=== PATIENT | female | born 1935 | race Caucasian/White ===

== ENCOUNTER 2016-04-19 09:14 | Inpatient (IN) | payer MEDICARE, MEDICAID ==
[2016-04-19] MEDS ORDERED: diphenhydrAMINE 50 MG/ML SDV IM ONE (10:07)
[2016-04-19] MEDS ORDERED: LORazepam 2 MG/ML MDV IM PRN (10:07)
[2016-04-19] MEDS ORDERED: Haloperidol Lactate 5 MG/ML SDV IM ONE (10:08)
[2016-04-19] MEDS ORDERED: diphenhydrAMINE 50 MG/ML SDV IM PRN (10:15)
[2016-04-19] MEDS ORDERED: diphenhydrAMINE 50 MG/ML SDV IM SCH (10:15)
[2016-04-19] MEDS ORDERED: Haloperidol Lactate 5 MG/ML SDV IM PRN (10:15)
[2016-04-19] MEDS ORDERED: Haloperidol Lactate 5 MG/ML SDV ONE (11:40)
[2016-04-19] MEDS ORDERED: LORazepam 2 MG/ML MDV ONE (11:40)
[2016-04-19] MEDS ORDERED: diphenhydrAMINE 50 MG/ML SDV ONE (11:40)
[2016-04-19] MEDS ORDERED: Sodium Chloride 0.9% 10 ML Syringe FLUSH PRN (12:25)
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
[2016-04-19] MEDS: Sodium Chloride 0.9% 1,000 ML IV SCH (13:35)
[2016-04-19] MEDS: Ciprofloxacin in D5W 200 ML ONE ×3 (14:25→14:34)
[2016-04-19] MEDS: Ciprofloxacin in D5W 400 MG in Premix Bag 1 BAG IV SCH ×4 (14:33→20:50)
[2016-04-19] MEDS ORDERED: diphenhydrAMINE 50 MG/ML SDV IVPUSH ONE (17:01)
[2016-04-19] MEDS ORDERED: LORazepam 2 MG/ML MDV IVPUSH ONE (17:02)
[2016-04-19] MEDS ORDERED: Haloperidol Lactate 5 MG/ML SDV IVPUSH ONE (17:05)
[2016-04-20] MEDS: LORazepam 2 MG/ML MDV IVPUSH PRN ×3 (06:37→19:57)
[2016-04-20] MEDS ORDERED: Haloperidol Lactate 5 MG/ML SDV IVPUSH ONE (07:25)
[2016-04-20] MEDS ORDERED: diphenhydrAMINE 50 MG/ML SDV IVPUSH ONE (07:25)
--- NOTE | 2016-04-20 08:35 | PCM.PN ---
- General Info Date of Service: 04/20/16 Admission Dx/Problem (Free Text): Dementia UTI Subjective Update: Stable evening. Only 2 mg of Ativan for agitation. Did pull her IV out X2. This morning, she had 5 bites of oatmeal and some juice. She is incoherent. therapeutic activities services worker is working on finding placement. She is being treated for a UTI with Cipro. Unable to do ROS due to the fact she is incoherent. Functional Status: Reports: tolerating diet - Review of Systems Psychiatric: Reports: confusion, agitation - Patient Data Vitals - most recent: Last Vital Signs Temp 97.2 F 04/19/16 20:00 Pulse 68 04/19/16 20:00 Resp 18 04/19/16 20:00 BP 131/67 04/19/16 20:00 Pulse Ox 99 04/19/16 20:00 Lab Results last 24 hrs: CBC, CMP, TSH, UDS are wnl UA shows +nitrites and leuks, tx for UTI Med Orders - Current: Current Medications Sodium Chloride (Normal Saline) 1,000 mls @ 75 mls/hr IV ASDIRECTED ANDREW Last Infusion: 04/20/16 05:18 Dose: Infused Ciprofloxacin/Dextrose 400 mg/ (Premix) 200 mls @ 200 mls/hr IV Q12HR ANDREW Last Admin: 04/19/16 20:50 Dose: 200 mls/hr Lorazepam (Ativan) 1 mg IVPUSH Q4H PRN PRN Reason: Agitation Last Admin: 04/20/16 06:37 Dose: 1 mg Sodium Chloride (Saline Flush) 10 ml FLUSH ASDIRECTED PRN PRN Reason: Keep Vein Open Last Admin: 04/19/16 13:30 Dose: 10 ml Discontinued Medications Diphenhydramine HCl (Benadryl) 50 mg IM ONETIME ONE Stop: 04/19/16 10:08 Diphenhydramine HCl (Benadryl) 50 mg IM ASDIRECTED ANDREW Stop: 04/19/16 14:00 Diphenhydramine HCl (Benadryl) 50 mg IM ASDIRECTED PRN PRN Reason: AGITATION Stop: 04/19/16 14:00 Diphenhydramine HCl (Benadryl) 50 mg IVPUSH ONETIME ONE Stop: 04/19/16 17:02 Last Admin: 04/19/16 17:00 Dose: 50 mg Diphenhydramine HCl (Benadryl) 25 mg IVPUSH ONETIME ONE Stop: 04/20/16 07:26 Haloperidol Lactate (Haldol) 2.5 mg IM ONETIME ONE Stop: 04/19/16 10:09 Haloperidol Lactate (Haldol) 2.5 mg IM ASDIRECTED PRN PRN Reason: AGITATION Stop: 04/19/16 14:00 Haloperidol Lactate (Haldol) 2.5 mg IVPUSH ONETIME ONE Stop: 04/19/16 17:06 Last Admin: 04/19/16 17:00 Dose: 2.5 mg Haloperidol Lactate (Haldol) 2.5 mg IVPUSH ONETIME ONE Stop: 04/20/16 07:26 Ciprofloxacin/Dextrose (Cipro In D5w 400 Mg/200 Ml) Confirm Administered Dose 200 mls @ as directed .ROUTE .STK-MED ONE Stop: 04/19/16 14:22 Last Admin: 04/19/16 14:34 Dose: Not Given Lorazepam (Ativan) 2 mg IM ONETIME PRN PRN Reason: Anxiety Lorazepam (Ativan) 1 mg IVPUSH ONETIME ONE Stop: 04/19/16 17:03 Last Admin: 04/19/16 17:00 Dose: 1 mg - Exam General: alert, other (incoherent) HEENT: Pupils equal, Pupils reactive, EOMI, Mucous membr. moist/pink Neck: supple Lungs: Clear to auscultation, Normal respiratory effort Cardiovascular: regular rate, regular rhythm Abdomen: bowel sounds present, soft, no tenderness, no distension Back Exam: normal inspection Extremities: no edema Skin: warm, dry (toenails are thick, long.) Neurological: other (inaudible). No: cranial nerves intact Psy/Mental Status: alert, agitated - Problem List & Annotations (1) Dementia SNOMED Code(s): 84697188 Code(s): F03.90 - UNSPECIFIED DEMENTIA WITHOUT BEHAVIORAL DISTURBANCE Status: Acute Priority: High Current Visit: Yes Qualifiers: Alzheimer's disease onset: unspecified onset Dementia behavioral disturbance: with behavioral disturbance (2) Violent behavior SNOMED Code(s): 518378643 Code(s): R45.6 - VIOLENT BEHAVIOR Status: Acute Priority: High Current Visit: Yes - Problem List Review Problem List Initiated/Reviewed/Updated: Yes - My Orders Last 24 Hours: My Active Orders 04/19/16 17:43 LORazepam [Ativan] 1 mg IVPUSH Q4H PRN 04/19/16 20:00 Ciprofloxacin in D5W [Cipro in D5W 400 MG/200 ML] 400 mg Premix Bag 1 bag IV Q12HR - Plan Plan:: Placement to a senior behavioral unit is in the works with social work.
--- NOTE | 2016-04-20 08:42 | CT ---
DATE OF SERVICE: 04/19/16 CLINICAL DATA: falls UNENHANCED BRAIN CT: Multislice acquisition through the brain without IV contrast was performed. No priors. There is diffuse cerebral atrophy. There are periventricular lucencies bilaterally consistent with small vessel ischemic change. No masses or mass effect. No intracranial hemorrhage. No evidence of acute or subacute infarct. There is minimal mucosal thickening in the ethmoid sinuses consistent with chronic sinusitis. No osseous abnormalities. IMPRESSION: No acute intracranial abnormalities. [id number] [facility]
--- NOTE | 2016-04-20 08:45 | CR ---
DATE OF SERVICE: 04/19/16 CLINICAL DATA: CAD PORTABLE AP CHEST: No priors. The patient is status post median sternotomy. The heart is enlarged. The aorta is calcified and ectatic. There are mild interstitial changes in both lower lungs. The lungs are otherwise clear. No pneumothorax. No pleural effusions. No areas of consolidation. [id number] [facility]
[2016-04-20] MEDS: Ciprofloxacin in D5W 400 MG in Premix Bag 1 BAG IV SCH ×4 (10:33→21:01)
[2016-04-20] MEDS ORDERED: Haloperidol Lactate 5 MG/ML SDV IVPUSH PRN (21:00)
[2016-04-20] MEDS: Sodium Chloride 0.9% 1,000 ML IV SCH (22:20)
[2016-04-21] MEDS: LORazepam 2 MG/ML MDV IVPUSH PRN ×5 (03:10→21:37)
[2016-04-21] MEDS ORDERED: Ciprofloxacin in D5W 200 ML ONE (07:37)
[2016-04-21] MEDS: Ciprofloxacin in D5W 400 MG in Premix Bag 1 BAG IV SCH ×4 (07:51→20:48)
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
[2016-04-21] MEDS: Sodium Chloride 0.9% 1,000 ML IV SCH (13:19)
[2016-04-21] MEDS ORDERED: Albuterol/Ipratropium 3.0-0.5 MG/3 ML Neb Soln NEB PRN (17:05)
[2016-04-21] MEDS ORDERED: Bisacodyl 10 MG Supp ONE (17:25)
[2016-04-21] MEDS ORDERED: Haloperidol Lactate 5 MG/ML SDV IVPUSH PRN (19:32)
[2016-04-22] MEDS: LORazepam 2 MG/ML MDV IVPUSH PRN ×3 (01:25→21:48)
[2016-04-22] MEDS: Sodium Chloride 0.9% 1,000 ML IV SCH ×2 (02:30→20:37)
[2016-04-22] MEDS ORDERED: Ciprofloxacin in D5W 200 ML ONE (07:21)
[2016-04-22] MEDS: Ciprofloxacin in D5W 400 MG in Premix Bag 1 BAG IV SCH ×4 (07:36→20:30)
[2016-04-22] MEDS ORDERED: Enalaprilat 1.25 MG/ML SDV IVPUSH PRN (09:10)
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
[2016-04-22] MEDS: Enalaprilat 1.25 MG/ML SDV IVPUSH SCH ×2 (09:39→18:00)
[2016-04-22] MEDS ORDERED: diphenhydrAMINE 50 MG/ML SDV IVPUSH ONE (23:59)
[2016-04-22] MEDS ORDERED: LORazepam 2 MG/ML MDV IVPUSH ONE (23:59)
[2016-04-23] MEDS ORDERED: Haloperidol Lactate 5 MG/ML SDV IVPUSH ONE
[2016-04-23] MEDS ORDERED: Haloperidol Lactate 5 MG/ML SDV IM ONE (04:34)
[2016-04-23] MEDS: LORazepam 2 MG/ML MDV IVPUSH PRN ×4 (07:27→23:21)
[2016-04-23] MEDS: Ciprofloxacin in D5W 400 MG in Premix Bag 1 BAG IV SCH ×2 (07:39)
[2016-04-23] MEDS ORDERED: Enalaprilat 1.25 MG/ML SDV IVPUSH SCH ×2 (09:00)
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
[2016-04-23] MEDS ORDERED: Haloperidol Lactate 5 MG/ML SDV IM PRN (16:19)
[2016-04-23] MEDS ORDERED: diphenhydrAMINE 50 MG/ML SDV ONE (20:00)
[2016-04-23] MEDS ORDERED: diphenhydrAMINE 50 MG/ML SDV IM PRN (21:35)
[2016-04-24] MEDS: LORazepam 2 MG/ML MDV IVPUSH PRN (03:14)
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
--- NOTE | 2016-04-24 09:53 | PCM.PN ---
- General Info Date of Service: 04/24/16 Subjective Update: Patient is sleeping but arousable and denies any concerns. She has been fluctuating in behaviors the past few days. Discussion with nursing have noted that the patient will appear to have improved and once we try to remove restraints her aggressive behaviors will return abruptly which includes hitting , pinching, scratching staff. This morning she was looking for a knife which is alarming as we cannot be certain if she has plans to harm herself or others. There is a current plan for placement but all centers have either been full or have unable to accept any transfers. Patient did have one-on-one nursing staff and at bedside at all times. She has been adjusted so she is visible to the nursing desk area at all times. - Review of Systems Systems Review Comment:: Uncooperative but denies any chest pain, no sob, no pain. - Patient Data Vitals - most recent: Last Vital Signs Temp 36.1 C 04/23/16 12:00 Pulse 86 04/24/16 04:00 Resp 20 04/24/16 04:00 BP 144/85 H 04/23/16 12:00 Pulse Ox 97 04/24/16 04:00 I&O - last 24 hours: Intake & Output 04/23/16 04/24/16 04/24/16 22:59 06:59 14:59 Intake Total 1440 350 Output Total 1600 600 Balance -160 -250 Med Orders - Current: Current Medications Albuterol/Ipratropium (Duoneb 3.0-0.5 Mg/3 Ml) 3 ml NEB Q4H PRN PRN Reason: Shortness of Breath Last Admin: 04/21/16 17:10 Dose: 3 ml Diphenhydramine HCl (Benadryl) 50 mg IM Q4H PRN PRN Reason: Hallucinations Last Admin: 04/23/16 21:50 Dose: 50 mg Enalaprilat (Vasotec Iv) 0.625 mg IVPUSH ONETIME ANDREW Haloperidol Lactate (Haldol) 2.5 mg IM Q8H PRN PRN Reason: Agitation Last Admin: 04/23/16 21:39 Dose: 2.5 mg Sodium Chloride (Normal Saline) 1,000 mls @ 75 mls/hr IV ASDIRECTED ANDREW Last Admin: 04/22/16 20:37 Dose: 75 mls/hr Lorazepam (Ativan) 1 mg IVPUSH Q4H PRN PRN Reason: Agitation Last Admin: 04/24/16 03:14 Dose: 1 mg Sodium Chloride (Saline Flush) 10 ml FLUSH ASDIRECTED PRN PRN Reason: Keep Vein Open Last Admin: 04/19/16 13:30 Dose: 10 ml Discontinued Medications Bisacodyl (Dulcolax) Confirm Administered Dose 10 mg .ROUTE .STK-MED ONE Stop: 04/21/16 17:26 Last Admin: 04/21/16 17:30 Dose: 10 mg Diphenhydramine HCl (Benadryl) 50 mg IM ONETIME ONE Stop: 04/19/16 10:08 Diphenhydramine HCl (Benadryl) 50 mg IM ASDIRECTED ANDREW Stop: 04/19/16 14:00 Diphenhydramine HCl (Benadryl) 50 mg IM ASDIRECTED PRN PRN Reason: AGITATION Stop: 04/19/16 14:00 Diphenhydramine HCl (Benadryl) 50 mg IVPUSH ONETIME ONE Stop: 04/19/16 17:02 Last Admin: 04/19/16 17:00 Dose: 50 mg Diphenhydramine HCl (Benadryl) 25 mg IVPUSH ONETIME ONE Stop: 04/20/16 07:26 Diphenhydramine HCl (Benadryl) 50 mg .ROUTE .STK-MED ONE Stop: 04/19/16 11:41 Diphenhydramine HCl (Benadryl) 50 mg IVPUSH ONETIME ONE Stop: 04/23/16 00:00 Last Admin: 04/23/16 21:41 Dose: Not Given Diphenhydramine HCl (Benadryl) Confirm Administered Dose 50 mg .ROUTE .STK-MED ONE Stop: 04/23/16 20:01 Last Admin: 04/23/16 21:40 Dose: Not Given Enalaprilat (Vasotec Iv) 0.625 mg IVPUSH Q6H PRN PRN Reason: Hypertension Enalaprilat (Vasotec Iv) 0.625 mg IVPUSH Q6H ANDREW Last Admin: 04/22/16 18:00 Dose: 0.625 mg Enalaprilat (Vasotec Iv) 0.625 mg IVPUSH Q6HR ANDREW Haloperidol Lactate (Haldol) 2.5 mg IM ONETIME ONE Stop: 04/19/16 10:09 Haloperidol Lactate (Haldol) 2.5 mg IM ASDIRECTED PRN PRN Reason: AGITATION Stop: 04/19/16 14:00 Haloperidol Lactate (Haldol) 2.5 mg IVPUSH ONETIME ONE Stop: 04/19/16 17:06 Last Admin: 04/19/16 17:00 Dose: 2.5 mg Haloperidol Lactate (Haldol) 2.5 mg IVPUSH ONETIME ONE Stop: 04/20/16 07:26 Haloperidol Lactate (Haldol) 5 mg .ROUTE .STK-MED ONE Stop: 04/19/16 11:41 Haloperidol Lactate (Haldol) 2.5 mg IVPUSH Q8H PRN PRN Reason: Agitation Last Admin: 04/21/16 10:23 Dose: 2.5 mg Haloperidol Lactate (Haldol) 2.5 mg IVPUSH ONETIME PRN PRN Reason: Agitation Haloperidol Lactate (Haldol) 2.5 mg IVPUSH ONETIME ONE Stop: 04/23/16 00:01 Last Admin: 04/23/16 21:50 Dose: Not Given Haloperidol Lactate (Haldol) 2.5 mg IM ONETIME ONE Stop: 04/23/16 04:35 Last Admin: 04/23/16 21:51 Dose: Not Given Ciprofloxacin/Dextrose 400 mg/ (Premix) 200 mls @ 200 mls/hr IV Q12HR [facility] Last Admin: 04/23/16 07:39 Dose: 200 mls/hr Ciprofloxacin/Dextrose (Cipro In D5w 400 Mg/200 Ml) Confirm Administered Dose 200 mls @ as directed .ROUTE .STK-MED ONE Stop: 04/19/16 14:22 Last Admin: 04/19/16 14:34 Dose: Not Given Ciprofloxacin/Dextrose (Cipro In D5w 400 Mg/200 Ml) Confirm Administered Dose 200 mls @ as directed .ROUTE .STK-MED ONE Stop: 04/21/16 07:38 Last Admin: 04/21/16 09:33 Dose: Not Given Ciprofloxacin/Dextrose (Cipro In D5w 400 Mg/200 Ml) Confirm Administered Dose 200 mls @ as directed .ROUTE .STK-MED ONE Stop: 04/22/16 07:22 Last Admin: 04/22/16 07:31 Dose: Not Given Lorazepam (Ativan) 2 mg IM ONETIME PRN PRN Reason: Anxiety Lorazepam (Ativan) 1 mg IVPUSH ONETIME ONE Stop: 04/19/16 17:03 Last Admin: 04/19/16 17:00 Dose: 1 mg Lorazepam (Ativan) 2 mg .ROUTE .STK-MED ONE Stop: 04/19/16 11:41 Lorazepam (Ativan) 1 mg IVPUSH ONETIME ONE Stop: 04/23/16 00:00 Last Admin: 04/23/16 01:45 Dose: 1 mg - Exam General: alert, cooperative (for certain questions and exams. ). No: oriented HEENT: Pupils equal, Pupils reactive, EOMI Lungs: Clear to auscultation, Normal respiratory effort Cardiovascular: regular rate, regular rhythm Abdomen: bowel sounds present, soft, no tenderness Extremities: no edema Skin: warm, dry, intact Neurological: no new focal deficit Psy/Mental Status: labile mood, other (psychosis) - Problem List Review Problem List Initiated/Reviewed/Updated: Yes - My Orders Last 24 Hours: My Active Orders 04/23/16 21:35 diphenhydrAMINE [Benadryl] 50 mg IM Q4H PRN - Plan Plan:: Placement to a senior behavioral unit is in the works with social work. Having difficulty finding placement for her. She will remain on her 72 hours hold, which expires tomorrow. (04/19/2025) Continues to have aggressive behavior. Does hit and kick at caretakers. Will continue to use ativan prn for this; Haldol will need specific order. Restraints off q 2 hours and re evaluate; she needs to be one on one if no one is in the room with her for her safety. She is not oriented to person, place or time. She is not able to feed herself. (04/20/2015) Delirium Dx Will have her evaluated by Dr. Jiménez, clinical psychologist. (04/21/2015) Will start vasotec for blood pressure. Continue to wait for placement. Guardianship was granted yesterday (Sunday). 04/22/2015 04/23/2016 Continue to wait for placement in [facility] for evaluation/diagnosis and med treatment. Guardianship has been obtained. She seems to do worse at night. More aggressive, per nurse, spits and is vulgar as well. Care will be turned over to Dr. Robertson at 1800 this evening. 04/24/2016 Pending placement. Patient has been having episodes of increased behavior late at night with aggression both verbally and physically. We will try adjustments of medication to help reduce the violent episodes and continue all supportive and care activities to redirect patient.
[2016-04-24] MEDS ORDERED: LORazepam 2 MG/ML MDV IM PRN (19:30)
--- NOTE | 2016-04-24 19:49 | PCM.SN ---
- Free Text/Narrative Note: Patient was talking with nurse and began to get combative again and wanted to leave and slap the nurse. We will have to continue restraints until patient can be transferred due to unavailability of inpatient psychiatric beds.
[2016-04-25] MEDS ORDERED: Lisinopril 10 MG Tab PO SCH (09:30)
[2016-04-25 09:32] VITALS: BP 148/84
--- NOTE | 2016-04-25 11:34 | PCM.DCSUM1 ---
Discharge Summary - Discharge Data Discharge Date: 04/25/16 Discharge Disposition: DC/Tfer to Psych Hosp/Unit [facility] Condition: Undetermined - Discharge Diagnosis/Problem(s) (1) Delirium due to another medical condition SNOMED Code(s): 0069973 ICD Code: F05 - DELIRIUM DUE TO KNOWN PHYSIOLOGICAL CONDITION Status: Acute Priority: High Current Visit: Yes (2) Dementia SNOMED Code(s): 12133691 ICD Code: F03.90 - UNSPECIFIED DEMENTIA WITHOUT BEHAVIORAL DISTURBANCE Status: Acute Priority: High Current Visit: Yes Qualifiers: Alzheimer's disease onset: unspecified onset Dementia behavioral disturbance: with behavioral disturbance (3) Psychiatric complaint SNOMED Code(s): 00520063, 098455259 ICD Code: F69 - UNSPECIFIED DISORDER OF ADULT PERSONALITY AND BEHAVIOR Status: Acute Current Visit: Yes (4) Violent behavior SNOMED Code(s): 873727426 ICD Code: R45.6 - VIOLENT BEHAVIOR Status: Acute Priority: High Current Visit: Yes - Patient Summary/Data Hospital Course: Patient has had times of restful behavior since the administration of ativan and haldol. She has usually acted up overnight with aggression towards nursing staff. We have tried multiple times to keep off restraints. She would be a willing participant until she gets agitated or disoriented. Even with a one-on- one nurse at bedside sitting to redirect this patient has had aggressive and violent episodes nightly and occasionally throughout the day by biting, punching , slapping and kicking staff. - Patient Instructions Diet: Regular Diet as Tolerated Activity: As Tolerated Driving: Do Not Drive - Discharge Plan Home Medications: Home Meds NK [No Known Home Meds] 04/19/16 [History] Forms: ED Department Discharge Referrals: PCP,None [Primary Care Provider] - - Discharge Summary/Plan Comment DC Time >30 min.: Yes Discharge Summary/Plan Comment: Patient to be transferred to Behavioral health unit for further management and treatment. - Patient Data Vitals - Most Recent: Last Vital Signs Temp 36.6 C 04/25/16 09:31 Pulse 88 04/25/16 09:31 Resp 18 04/25/16 09:31 BP 148/84 H 04/25/16 09:31 Pulse Ox 95 04/25/16 09:31 Weight - Most Recent: 61.507 kg I&O - Last 24 hours: Intake & Output 02/27/17 02/28/17 02/28/17 22:59 06:59 14:59 Intake Total 1370 200 Output Total 800 400 Balance 570 -200 Med Orders - Current: Current Medications Albuterol/Ipratropium (Duoneb 3.0-0.5 Mg/3 Ml) 3 ml NEB Q4H PRN PRN Reason: Shortness of Breath Last Admin: 04/21/16 17:10 Dose: 3 ml Diphenhydramine HCl (Benadryl) 50 mg IM Q4H PRN PRN Reason: Hallucinations Last Admin: 04/23/16 21:50 Dose: 50 mg Haloperidol Lactate (Haldol) 2.5 mg IM Q8H PRN PRN Reason: Agitation Last Admin: 04/23/16 21:39 Dose: 2.5 mg Sodium Chloride (Normal Saline) 1,000 mls @ 75 mls/hr IV ASDIRECTED ANDREW Last Admin: 04/22/16 20:37 Dose: 75 mls/hr Lisinopril (Prinivil) 10 mg PO DAILY ANDREW Last Admin: 04/25/16 09:45 Dose: 10 mg Lorazepam (Ativan) 1 mg IM Q4H PRN PRN Reason: Agitation Last Admin: 04/25/16 11:07 Dose: 1 mg Sodium Chloride (Saline Flush) 10 ml FLUSH ASDIRECTED PRN PRN Reason: Keep Vein Open Last Admin: 04/19/16 13:30 Dose: 10 ml Discontinued Medications Bisacodyl (Dulcolax) Confirm Administered Dose 10 mg .ROUTE .STK-MED ONE Stop: 04/21/16 17:26 Last Admin: 04/21/16 17:30 Dose: 10 mg Diphenhydramine HCl (Benadryl) 50 mg IM ONETIME ONE Stop: 04/19/16 10:08 Diphenhydramine HCl (Benadryl) 50 mg IM ASDIRECTED ANDREW Stop: 04/19/16 14:00 Diphenhydramine HCl (Benadryl) 50 mg IM ASDIRECTED PRN PRN Reason: AGITATION Stop: 04/19/16 14:00 Diphenhydramine HCl (Benadryl) 50 mg IVPUSH ONETIME ONE Stop: 04/19/16 17:02 Last Admin: 04/19/16 17:00 Dose: 50 mg Diphenhydramine HCl (Benadryl) 25 mg IVPUSH ONETIME ONE Stop: 04/20/16 07:26 Diphenhydramine HCl (Benadryl) 50 mg .ROUTE .STK-MED ONE Stop: 04/19/16 11:41 Diphenhydramine HCl (Benadryl) 50 mg IVPUSH ONETIME ONE Stop: 04/23/16 00:00 Last Admin: 04/23/16 21:41 Dose: Not Given Diphenhydramine HCl (Benadryl) Confirm Administered Dose 50 mg .ROUTE .STK-MED ONE Stop: 04/23/16 20:01 Last Admin: 04/23/16 21:40 Dose: Not Given Enalaprilat (Vasotec Iv) 0.625 mg IVPUSH Q6H PRN PRN Reason: Hypertension Enalaprilat (Vasotec Iv) 0.625 mg IVPUSH Q6H ANDREW Last Admin: 04/22/16 18:00 Dose: 0.625 mg Enalaprilat (Vasotec Iv) 0.625 mg IVPUSH Q6HR ANDREW Haloperidol Lactate (Haldol) 2.5 mg IM ONETIME ONE Stop: 04/19/16 10:09 Haloperidol Lactate (Haldol) 2.5 mg IM ASDIRECTED PRN PRN Reason: AGITATION Stop: 04/19/16 14:00 Haloperidol Lactate (Haldol) 2.5 mg IVPUSH ONETIME ONE Stop: 04/19/16 17:06 Last Admin: 04/19/16 17:00 Dose: 2.5 mg Haloperidol Lactate (Haldol) 2.5 mg IVPUSH ONETIME ONE Stop: 04/20/16 07:26 Haloperidol Lactate (Haldol) 5 mg .ROUTE .STK-MED ONE Stop: 04/19/16 11:41 Haloperidol Lactate (Haldol) 2.5 mg IVPUSH Q8H PRN PRN Reason: Agitation Last Admin: 04/21/16 10:23 Dose: 2.5 mg Haloperidol Lactate (Haldol) 2.5 mg IVPUSH ONETIME PRN PRN Reason: Agitation Haloperidol Lactate (Haldol) 2.5 mg IVPUSH ONETIME ONE Stop: 04/23/16 00:01 Last Admin: 04/23/16 21:50 Dose: Not Given Haloperidol Lactate (Haldol) 2.5 mg IM ONETIME ONE Stop: 04/23/16 04:35 Last Admin: 04/23/16 21:51 Dose: Not Given Ciprofloxacin/Dextrose 400 mg/ (Premix) 200 mls @ 200 mls/hr IV Q12HR ANDREW Last Admin: 04/23/16 07:39 Dose: 200 mls/hr Ciprofloxacin/Dextrose (Cipro In D5w 400 Mg/200 Ml) Confirm Administered Dose 200 mls @ as directed .ROUTE .STK-MED ONE Stop: 04/19/16 14:22 Last Admin: 04/19/16 14:34 Dose: Not Given Ciprofloxacin/Dextrose (Cipro In D5w 400 Mg/200 Ml) Confirm Administered Dose 200 mls @ as directed .ROUTE .STK-MED ONE Stop: 04/21/16 07:38 Last Admin: 04/21/16 09:33 Dose: Not Given Ciprofloxacin/Dextrose (Cipro In D5w 400 Mg/200 Ml) Confirm Administered Dose 200 mls @ as directed .ROUTE .STK-MED ONE Stop: 04/22/16 07:22 Last Admin: 04/22/16 07:31 Dose: Not Given Lorazepam (Ativan) 2 mg IM ONETIME PRN PRN Reason: Anxiety Lorazepam (Ativan) 1 mg IVPUSH ONETIME ONE Stop: 04/19/16 17:03 Last Admin: 04/19/16 17:00 Dose: 1 mg Lorazepam (Ativan) 1 mg IVPUSH Q4H PRN PRN Reason: Agitation Last Admin: 04/24/16 03:14 Dose: 1 mg Lorazepam (Ativan) 2 mg .ROUTE .STK-MED ONE Stop: 04/19/16 11:41 Lorazepam (Ativan) 1 mg IVPUSH ONETIME ONE Stop: 04/23/16 00:00 Last Admin: 04/23/16 01:45 Dose: 1 mg *Q Meaningful Use (DIS) - VTE *Q VTE Criteria *Q: - Stroke *Q Stroke Criteria *Q: - AMI *Q AMI Criteria *Q:
== END 2016-04-25 11:40 | DRG 57 ==
LOC: LB.ED 09:14 → LB.MS 12:26 → OBSVTOIN 04-22 10:43
PROVIDERS: ADMIT Nurse Practitioner Family; ATTEND Family Medicine
DX: G30.9 Alzheimer's disease, unspecified (principal); F02.81 Dementia in other diseases classified elsewhere, unspecified severity, with behavioral disturbance; F05 Delirium due to known physiological condition; N39.0 Urinary tract infection, site not specified; I10 Essential (primary) hypertension; I25.10 Atherosclerotic heart disease of native coronary artery without angina pectoris; Z66 Do not resuscitate; R45.6 Violent behavior; F69 Unspecified disorder of adult personality and behavior; Z95.1 Presence of aortocoronary bypass graft; Z88.0 Allergy status to penicillin; Z78.1 Physical restraint status; Z74.2 Need for assistance at home and no other household member able to render care; Z75.1 Person awaiting admission to adequate facility elsewhere
CPT/HCPCS: 36415; 70450; 71010; 80053; 80307; 81001; 83880; 84443; 84484; 85025; 93005; 96361 ×5; 96365; 96366 ×3; 96375 ×3; 96376 ×2; 99219; 99225 ×2; 99285; A0425; A0429; A9270; G0378 ×5; G0426; G0480 ×2; J0744 ×7; J1200 ×2; J1630 ×3; J2060 ×12; J7040 ×4; J7050; J7620; Q3014

== ENCOUNTER 2016-12-15 10:22 | Emergency (ER) | payer MEDICARE ==
[2016-12-15 11:21] VITALS: BP 139/70
[2016-12-15] MEDS ORDERED: Morphine 10 MG/ML Syringe ONE (11:52)
[2016-12-15] MEDS ORDERED: Ondansetron 4 MG/2 ML SDV ONE (12:06)
--- NOTE | 2016-12-15 12:07 | ER ---
HISTORY OF PRESENT ILLNESS: An 81-year-old lady here from the assisted living center. She fell during the night and has not been able to bear weight on her right leg. There initially was a red spot on the right hip area where she had fallen. The patient is only complaining of pain when she tries to move or put weight on her foot. She also sustained an abrasion injury to the back of her head. PAST MEDICAL HISTORY: Includes dementia and delirium and history of violent behavior. CURRENT MEDICATIONS: Unknown. ALLERGIES: PENICILLIN. OBJECTIVE: GENERAL APPEARANCE: The patient is awake. She is in no respiratory distress. VITAL SIGNS: Revealed blood pressure 155/91 initially, pulse of 77, and O2 sats are 95%. MUSCULOSKELETAL: Examining the patient's left hip reveals some tenderness with palpation over the greater trochanter area and wrapping around slightly to the inguinal area. She states there is no pain at rest but with any movement, it hurts. HEAD: Examining the back of the patient's head reveals a superficial abrasion injury that has been cleansed already by nursing staff. LAB AND X-RAY: X-ray of the right hip reveals a hip fracture with what looks like some mild impaction. There is no displacement. DIAGNOSIS: Hip fracture, right side. TREATMENT PLAN: I did talk with Dr. Campbell who is the patient's primary care provider. He feels she is a good candidate for surgery. She is active and dementia is really her only acute issue. At this point, I contacted Dr. Greenwood, the hospitalist at [facility] in [place], who accepted the care for the patient. She will be transferred by ground ambulance. Morphine 5 mg was given IV just before transfer. CRS/MODL /[id number]
== END 2016-12-15 12:00 ==
LOC: LB.ED 10:22
DX: S72.001A Fracture of unspecified part of neck of right femur, initial encounter for closed fracture (principal); W19.XXXA Unspecified fall, initial encounter
CPT/HCPCS: 36415; 51702; 80048; 85025; 99284; J2270; J2405; A0425; A0429

== ENCOUNTER 2016-12-19 09:17 | Inpatient (IN) | payer MEDICARE ==
[2016-12-19] MEDS ORDERED: Tuberculin, PPD 5 Units/0.1 ML 1 ML MDV IDERM ONE (11:50)
[2016-12-19] MEDS ORDERED: Albuterol/Ipratropium 3.0-0.5 MG/3 ML Neb Soln INH PRN (11:54)
[2016-12-19] MEDS ORDERED: Non-Formulary Medication 1 Each (Cyanocobalamin (Vitamin B-12) [Vitamin B-12] 1,000 MCG) SL SCH (12:00)
[2016-12-19] MEDS: Acetaminophen/HYDROcodone 325-5 MG Tab PO PRN ×2 (12:40→20:05)
[2016-12-19] MEDS: VALPROIC ACID 250 MG/5 ML PO SCH (18:44)
[2016-12-19] MEDS ORDERED: VIT C PO SCH (20:00)
[2016-12-19] MEDS ORDERED: [UNRECOGNIZED DRUG - OTHER] PO SCH (20:00)
[2016-12-19] MEDS ORDERED: VIT E ACETATE PO SCH (20:00)
[2016-12-19] MEDS ORDERED: Budesonide/Formoterol 80-4.5 MCG/Puff 6.9 GM Inhaler INH SCH (20:00)
[2016-12-19] MEDS ORDERED: Formoterol/Mometasone 100-5 MCG 8.8 GM Inhaler IH SCH (20:00)
[2016-12-19] MEDS ORDERED: RISPERIDONE 0.5 MG PO SCH (20:00)
[2016-12-19] MEDS ORDERED: Non-Formulary Medication 1 Each (Mirtazapine [Mirtazapine] 7.5 MG) PO SCH (20:00)
[2016-12-19] MEDS ORDERED: LUTEIN PO SCH (20:00)
[2016-12-19] MEDS ORDERED: VALPROIC ACID 250 MG PO SCH (20:00)
[2016-12-19] MEDS: Mirtazapine 15 MG Tab PO SCH (20:04)
[2016-12-19] MEDS: risperiDONE 1 MG Tab PO SCH (20:04)
[2016-12-19] MEDS: Budesonide/Formoterol 80-4.5 MCG/Puff 6.9 GM Inhaler INH SCH (20:05)
[2016-12-20] MEDS: Enoxaparin 40 MG/0.4 ML Syringe SUBCUT SCH (07:26)
[2016-12-20] MEDS: Lisinopril 5 MG Tab PO SCH (07:26)
[2016-12-20] MEDS: Budesonide/Formoterol 80-4.5 MCG/Puff 6.9 GM Inhaler INH SCH ×2 (07:31→22:10)
[2016-12-20] MEDS ORDERED: Docusate Sodium 100 MG Cap PO SCH (08:00)
[2016-12-20] MEDS ORDERED: Docusate Sodium Liquid 50 MG/5 ML ML 473 ML Bottle PO SCH (08:00)
[2016-12-20] MEDS: Lutein/Minerals/Vitamins A, C & E Tab PO SCH (11:37)
[2016-12-20] MEDS: Acetaminophen/HYDROcodone 325-5 MG Tab PO PRN ×2 (15:25→21:31)
[2016-12-20] MEDS: risperiDONE 1 MG Tab PO SCH (21:30)
[2016-12-20] MEDS: Mirtazapine 15 MG Tab PO SCH (21:30)
[2016-12-20] MEDS: VALPROIC ACID 250 MG/5 ML PO SCH (21:32)
--- NOTE | 2016-12-21 08:34 | PCM.HP ---
H&P History of Present Illness - General Date of Service: 12/19/16 (12-19-16 pt sleeping, 12-20-16 am pt alert, no verbal response.) Admit Problem/Dx: Admission Diagnosis/Problem Admission Diagnosis/Problem Status post hip surgery Source of Information: Shelter Records, Old Records, RN History Limitations: Reports: Altered Mental Status, Other (Little verbal response from pt. Pt sleeping.) - History of Present Illness Initial Comments - Free Text/Narative: 81 yr female presents S/P hip injury/fracture from fall and s/p hip nailing surgery - Related Data Allergies/Adverse Reactions: Allergies Allergy/AdvReac Type Severity Reaction Status Date / Time aspirin Allergy Cannot Verified 12/19/16 10:07 Remember Penicillins Allergy Other Verified 12/19/16 18:38 procaine [From Novocain] Allergy Cannot Verified 12/19/16 10:07 Remember Home Medications: Home Meds Acetaminophen [Acetaminophen Extra Strength] 1,000 mg PO Q6H PRN 12/19/16 [ History] Acetaminophen/HYDROcodone [[place] 325-5 MG] 1 tab PO Q6H PRN 12/19/16 [History] Albuterol/Ipratropium [DuoNeb 3.0-0.5 MG/3 ML] 3 ml INH Q4H PRN 12/19/16 [ History] Budesonide/Formoterol [Symbicort 80-4.5 MCG] 2 puff INH BID 12/19/16 [History] Cyanocobalamin (Vitamin B-12) [Vitamin B-12] 1,000 mcg SL ASDIRECTED 12/19/16 [ History] Docusate Sodium [Docu Liquid] 10 ml PO DAILY 12/19/16 [History] Enoxaparin [Lovenox] 40 mg SUBCUT DAILY 12/19/16 [History] Ferrous Sulfate [Moy-Iron Solution] 15 mg PO BID 12/19/16 [History] Lisinopril [Prinivil] 5 mg PO DAILY 12/19/16 [History] Lutein/Min/Vit C/Vit E Acetate [Ocuvite Lutein] 1 each PO BID 12/19/16 [History] Mirtazapine 7.5 mg PO BEDTIME 12/19/16 [History] Valproic Acid (As Sodium Salt) [Depakene] 250 mg PO BEDTIME 12/19/16 [History] risperiDONE [Risperdal] 0.5 mg PO BEDTIME 12/19/16 [History] Past Medical History HEENT History: Reports: Cataract, Glaucoma, Macular Degeneration Cardiovascular History: Reports: CAD, High Cholesterol, Hypertension Other Cardiovascular History: CABG Respiratory History: Reports: COPD Genitourinary History: Reports: Other (See Below) Other Genitourinary History: history of UTI 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: Musculoskeletal History: Reports: Osteoarthritis Neurological History: Reports: Other (See Below) Other Neuro History: Dementia Psychiatric History: Reports: Dementia - Past Surgical History HEENT Surgical History: Reports: Visual Cardiovascular Surgical History: Reports: Coronary Artery Bypass Female Surgical History: Reports: None Musculoskeletal Surgical History: Reports: None Social & Family History - Family History Family Medical History: Noncontributory - Tobacco Use Smoking Status *Q: Never Smoker Second Hand Smoke Exposure: No - Caffeine Use Caffeine Use: Reports: Coffee - Recreational Drug Use Recreational Drug Use: No H&P Review of Systems - Review of Systems: Review Of Systems: Unable To Obtain Free Text/Narrative: 12-19-16 Pt sleeping and little response from pt. 12-20-2016 Completed another visit to pt today and she nodded once to me in response to communication, otherwise no response. Exam - Exam Exam: See Below - Vital Signs Vital Signs: Last Vital Signs Temp 98.4 F 12/20/16 20:00 Pulse 80 12/20/16 20:00 Resp 15 12/20/16 20:00 BP 128/57 L 12/20/16 20:00 Pulse Ox 97 12/20/16 20:00 Weight: 139 lb 6.4 oz - Exam General: Alert, Other (unable to determine, response is little, once she nodded her head during assessment, otherwise no response, just looks at me.) HEENT: Mucosa Moist & [place], Pupils Equal Neck: Supple, Trachea Midline Lungs: Clear to Auscultation, Normal Respiratory Effort, Decreased Breath Sounds Cardiovascular: Regular Rate, Regular Rhythm GI/Abdominal Exam: Normal Bowel Sounds, Soft, Non-Tender (Female) Exam: Deferred Rectal (Female) Exam: Deferred Back Exam: Normal Inspection Extremities: No Pedal Edema, Normal Capillary Refill Skin: Warm, Dry, Incision Neuro Extensive - Mental Status: Other (few response to commands, looks at provider and doesn't respond.) Psychiatric: Alert - Patient Data Lab Results Last 24 hrs: Laboratory Results - last 24 hr 12/20/16 Range/Units 21:54 Urine Color Yellow Urine Appearance Cloudy (CLEAR) Urine pH 7.0 (5.0-8.0) Ur Specific [place] 1.020 (1.003-1.030) Urine Protein 30 H (NEGATIVE) mg/dL Urine Glucose (UA) Negative (NEGATIVE) mg/dL Urine Ketones Trace H (NEGATIVE) mg/dL Urine Occult Blood Moderate H (NEGATIVE) Urine Nitrite Negative (NEGATIVE) Urine Bilirubin Negative (NEGATIVE) Urine Urobilinogen 0.2 (0.2-1.0) E.U./dL Ur Leukocyte Esterase Negative (NEGATIVE) Result Diagrams: 12/21/16 08:34 12/21/16 08:34 Harry Results Last 24 hrs: Microbiology 12/19/16 15:56 MRSA Surveillance Culture - Final Nasal, Left NO MRSA ISOLATED *Q Meaningful Use (ADM) - VTE *Q VTE Criteria *Q: - Stroke *Q Stroke Criteria *Q: - AMI *Q AMI Criteria *Q: - Problem List (1) Status post hip surgery SNOMED Code(s): 272458554 ICD Code: Z98.890 - OTHER SPECIFIED POSTPROCEDURAL STATES Status: Acute Priority: High Current Visit: Yes Problem Details: s/p surgery for repair of right hip fracture (2) Bladder retention of urine SNOMED Code(s): 100760766 ICD Code: R33.9 - RETENTION OF URINE, UNSPECIFIED Status: Acute Priority : High Current Visit: Yes Problem Details: scan every 4 hour and intermittent urinary catheter for urinary retention (3) Dementia SNOMED Code(s): 24125049 ICD Code: F03.90 - UNSPECIFIED DEMENTIA WITHOUT BEHAVIORAL DISTURBANCE Status: Acute Priority: High Current Visit: No Qualifiers: Alzheimer's disease onset: unspecified onset Dementia behavioral disturbance: with behavioral disturbance (4) Anemia SNOMED Code(s): 265163006 ICD Code: D64.9 - ANEMIA, UNSPECIFIED Status: Acute Priority: High Current Visit: Yes Onset Date: ~12/19/16 Problem Details: post surgery Problem List Initiated/Reviewed/Updated: Yes Orders Last 24hrs: Active Orders 24 hr Category Date Time Status Dressing Change [Wound Care] [RC] BID Care 12/20/16 08:00 Active BASIC METABOLIC PANEL,BMP [CHEM] Routine Lab 12/21/16 08:14 Ordered CBC WITH AUTO DIFF [HEME] Routine Lab 12/21/16 08:14 Ordered Cyanocobalamin (Vitamin B12) [Vitamin B12] Med 12/29/16 08:00 Active 1,000 mcg IM .MONTHLY Enoxaparin [Lovenox] Med 12/20/16 08:00 Active 40 mg SUBCUT DAILY Lisinopril [Prinivil] Med 12/20/16 08:00 Active 5 mg PO DAILY Lutein/Minerals/Vit A,C & E [Ocuvite] Med 12/20/16 08:00 Active 1 each PO DAILY Pneumococcal Polyvalent-23 Vac [Pneumovax 23] Med 12/26/16 10:00 Once 0.5 ml IM .ONCE ONE Medication Orders Acetaminophen (Tylenol Extra Strength) 1,000 mg PO Q6H PRN PRN Reason: Pain Hydrocodone Bitart/Acetaminophen ([place] 325-5 Mg) 1 tab PO Q6H PRN PRN Reason: Pain Last Admin: 12/20/16 21:31 Dose: 1 tab Admin: 12/20/16 15:25 Dose: 1 tab Admin: 12/19/16 20:05 Dose: 1 tab Admin: 12/19/16 12:40 Dose: 1 tab Albuterol/Ipratropium (Duoneb 3.0-0.5 Mg/3 Ml) 3 ml INH Q4H PRN PRN Reason: Wheezing Budesonide/Formoterol Fumarate (Symbicort 80-4.5 Mcg) 6.9 gm INH BID [facility] Last Admin: 12/20/16 22:10 Dose: Not Given Admin: 12/20/16 07:31 Dose: 2 puff Admin: 12/19/16 20:05 Dose: Not Given Cyanocobalamin (Vitamin B12) 1,000 mcg IM .MONTHLY [facility] Enoxaparin Sodium (Lovenox) 40 mg SUBCUT DAILY [facility] Stop: 01/03/17 18:00 Last Admin: 12/20/16 07:26 Dose: 40 mg Lisinopril (Prinivil) 5 mg PO DAILY [facility] Last Admin: 12/20/16 07:26 Dose: 5 mg Mirtazapine (Remeron) 7.5 mg PO BEDTIME [facility] Last Admin: 12/20/16 21:30 Dose: 7.5 mg Admin: 12/19/16 20:04 Dose: 7.5 mg Multivitamins/Minerals (Ocuvite) 1 each PO DAILY [facility] Last Admin: 12/20/16 11:37 Dose: Not Given Non-Formulary Medication (Ferrous Sulfate [Moy-Iron Solution]) 15 mg PO BID [facility] Valproic Acid 250mg/ (5ml) 5 each PO DAILY@1800 [facility] Last Admin: 12/20/16 21:32 Dose: 5 each Admin: 12/19/16 18:44 Dose: 5 each Pneumococcal Polyvalent Vaccine (Pneumovax 23) 0.5 ml IM .ONCE ONE Stop: 12/26/16 10:01 Risperidone (Risperidal) 0.5 mg PO BEDTIME [facility] Last Admin: 12/20/16 21:30 Dose: 0.5 mg Admin: 12/19/16 20:04 Dose: 0.5 mg Assessment/Plan Comment:: ROSEMARY 12-19-16 S/P right hip surgery: PT/OT for evaluation and treatment: Stregthening and exercise. Offer strengthening and exercise as able with pt with dementia. Pt resistive at times and may be combative at times. Anticoagulant, prevention PE post surgery: Lovenox per protocol from surgeon. SCD's per protocol. Wound right hip: Dressing change per protocol from surgeon. Keep dressing clean, dry and intact. Assess wound for signs of infection. Pain to right hip: Pain medication for mild, moderate, and severe pain. Position patient for comfort. Assist patient with transfers. Dementia: Safety precautions to prevent falls. Medications as ordered. Anemia: Vitamin B12, and ferrous sulfate as ordered. Encourage pt with meals and offer assist as needed. Monitor lab values weekly and prn. Urinary retention: Scan bladder every 4 hour and intermittent straight, urinary catheter. If pt resists straight catheter, may insert indwelling esparza catheter with bladder training per protocol. Discharge plan: SW to assist with discharge plan/placement. Plan to discharge to detention care facility.
[2016-12-21] MEDS: Enoxaparin 40 MG/0.4 ML Syringe SUBCUT SCH (08:41)
[2016-12-21] MEDS: Acetaminophen/HYDROcodone 325-5 MG Tab PO PRN ×3 (08:42→17:13)
[2016-12-21] MEDS: Budesonide/Formoterol 80-4.5 MCG/Puff 6.9 GM Inhaler INH SCH ×2 (08:43→20:08)
[2016-12-21] MEDS: Lisinopril 5 MG Tab PO SCH (08:43)
[2016-12-21] MEDS: Lutein/Minerals/Vitamins A, C & E Tab PO SCH (11:59)
[2016-12-21] MEDS: VALPROIC ACID 250 MG/5 ML PO SCH (17:14)
[2016-12-21] MEDS: risperiDONE 1 MG Tab PO SCH (20:00)
[2016-12-21] MEDS: Mirtazapine 15 MG Tab PO SCH (20:01)
[2016-12-22] MEDS ORDERED: Lutein/Minerals/Vitamin C/Vitamin E Acetate Cap ONE (09:50)
[2016-12-22] MEDS: Budesonide/Formoterol 80-4.5 MCG/Puff 6.9 GM Inhaler INH SCH ×2 (09:53→19:44)
[2016-12-22] MEDS: Lisinopril 5 MG Tab PO SCH (10:39)
[2016-12-22] MEDS: Lutein/Minerals/Vitamins A, C & E Tab PO SCH (10:39)
[2016-12-22] MEDS: Acetaminophen/HYDROcodone 325-5 MG Tab PO PRN ×2 (10:39→17:53)
[2016-12-22] MEDS: Enoxaparin 40 MG/0.4 ML Syringe SUBCUT SCH (10:42)
[2016-12-22] MEDS: Acetaminophen 500 MG Tab PO PRN (11:53)
[2016-12-22] MEDS: Ferrous Sulfate 325 MG Tab PO SCH (17:53)
[2016-12-22] MEDS: VALPROIC ACID 250 MG/5 ML PO SCH (17:54)
[2016-12-22] MEDS: risperiDONE 1 MG Tab PO SCH (19:34)
[2016-12-22] MEDS: Mirtazapine 15 MG Tab PO SCH (19:34)
[2016-12-23] MEDS: Acetaminophen/HYDROcodone 325-5 MG Tab PO PRN ×5 (02:41→22:57)
[2016-12-23] MEDS: Lisinopril 5 MG Tab PO SCH (07:49)
[2016-12-23] MEDS: Ferrous Sulfate 325 MG Tab PO SCH ×2 (07:49→17:39)
[2016-12-23] MEDS: Potassium Chloride 20 MEQ Tab.ER PO SCH ×2 (07:51→20:22)
[2016-12-23] MEDS: Enoxaparin 40 MG/0.4 ML Syringe SUBCUT SCH (07:52)
[2016-12-23] MEDS ORDERED: Lutein/Minerals/Vitamin C/Vitamin E Acetate Cap ONE (08:02)
[2016-12-23] MEDS: Lutein/Minerals/Vitamins A, C & E Tab PO SCH ×2 (08:02→08:05)
[2016-12-23] MEDS: Budesonide/Formoterol 80-4.5 MCG/Puff 6.9 GM Inhaler INH SCH ×2 (08:05→22:58)
[2016-12-23] MEDS: VALPROIC ACID 250 MG/5 ML PO SCH (17:42)
[2016-12-23] MEDS: Mirtazapine 15 MG Tab PO SCH (20:23)
[2016-12-23] MEDS: risperiDONE 1 MG Tab PO SCH (20:23)
[2016-12-24] MEDS ORDERED: Lutein/Minerals/Vitamin C/Vitamin E Acetate Cap ONE (07:16)
[2016-12-24] MEDS: Lisinopril 5 MG Tab PO SCH (09:29)
[2016-12-24] MEDS: Potassium Chloride 20 MEQ Tab.ER PO SCH ×2 (09:29→19:24)
[2016-12-24] MEDS: Acetaminophen/HYDROcodone 325-5 MG Tab PO PRN ×2 (09:30→17:35)
[2016-12-24] MEDS: Enoxaparin 40 MG/0.4 ML Syringe SUBCUT SCH (09:56)
[2016-12-24] MEDS: Budesonide/Formoterol 80-4.5 MCG/Puff 6.9 GM Inhaler INH SCH (09:58)
[2016-12-24] MEDS: Lutein/Minerals/Vitamins A, C & E Tab PO SCH (09:58)
[2016-12-24] MEDS: Ferrous Sulfate 325 MG Tab PO SCH ×2 (09:58→17:32)
[2016-12-24] MEDS: VALPROIC ACID 250 MG/5 ML PO SCH (17:32)
[2016-12-24] MEDS: Mirtazapine 15 MG Tab PO SCH (19:23)
[2016-12-24] MEDS: risperiDONE 1 MG Tab PO SCH (19:24)
[2016-12-25] MEDS: Budesonide/Formoterol 80-4.5 MCG/Puff 6.9 GM Inhaler INH SCH ×3 (06:19→20:40)
[2016-12-25] MEDS: Enoxaparin 40 MG/0.4 ML Syringe SUBCUT SCH (07:15)
[2016-12-25] MEDS: Potassium Chloride 20 MEQ Tab.ER PO SCH ×2 (07:15→19:44)
[2016-12-25] MEDS: Lisinopril 5 MG Tab PO SCH (07:15)
[2016-12-25] MEDS: Ferrous Sulfate 325 MG Tab PO SCH ×2 (07:15→20:40)
[2016-12-25] MEDS: Lutein/Minerals/Vitamins A, C & E Tab PO SCH (07:18)
[2016-12-25] MEDS: Acetaminophen/HYDROcodone 325-5 MG Tab PO PRN ×2 (07:22→15:24)
[2016-12-25] MEDS: risperiDONE 1 MG Tab PO SCH (19:39)
[2016-12-25] MEDS: FERROUS SULFATE 15 MG PO SCH (19:44)
[2016-12-25] MEDS: Docusate Sodium 100 MG Cap PO SCH (19:44)
[2016-12-25] MEDS: VALPROIC ACID 250 MG/5 ML PO SCH (19:45)
[2016-12-25] MEDS: Mirtazapine 15 MG Tab PO SCH (19:45)
[2016-12-26] MEDS: Docusate Sodium 100 MG Cap PO SCH ×2 (07:37→20:15)
[2016-12-26] MEDS: Lisinopril 5 MG Tab PO SCH (07:37)
[2016-12-26] MEDS: Potassium Chloride 20 MEQ Tab.ER PO SCH ×2 (07:37→20:15)
[2016-12-26] MEDS: Enoxaparin 40 MG/0.4 ML Syringe SUBCUT SCH (07:38)
[2016-12-26] MEDS: FERROUS SULFATE 15 MG PO SCH ×2 (07:38→20:20)
[2016-12-26] MEDS: Budesonide/Formoterol 80-4.5 MCG/Puff 6.9 GM Inhaler INH SCH ×2 (07:43→20:20)
[2016-12-26] MEDS: Lutein/Minerals/Vitamins A, C & E Tab PO SCH (07:51)
[2016-12-26] MEDS ORDERED: Pneumococcal Polyvalent-23 Vaccine 0.5 ML SDV IM ONE (10:00)
[2016-12-26] MEDS: Acetaminophen/HYDROcodone 325-5 MG Tab PO PRN ×2 (10:31→20:21)
[2016-12-26] MEDS: VALPROIC ACID 250 MG/5 ML PO SCH (17:09)
[2016-12-26] MEDS: Acetaminophen 500 MG Tab PO PRN (17:09)
[2016-12-26] MEDS: Mirtazapine 15 MG Tab PO SCH (20:14)
[2016-12-26] MEDS: risperiDONE 1 MG Tab PO SCH (20:16)
[2016-12-27] MEDS: Budesonide/Formoterol 80-4.5 MCG/Puff 6.9 GM Inhaler INH SCH ×2 (09:08→19:46)
[2016-12-27] MEDS: FERROUS SULFATE 15 MG PO SCH ×2 (09:08→19:44)
[2016-12-27] MEDS: Acetaminophen 500 MG Tab PO PRN (09:10)
[2016-12-27] MEDS: Potassium Chloride 20 MEQ Tab.ER PO SCH ×2 (09:11→19:37)
[2016-12-27] MEDS: Multivitamins with Iron/Calcium/Folic Acid/Minerals Tab PO SCH (09:11)
[2016-12-27] MEDS: Docusate Sodium 100 MG Cap PO SCH ×2 (09:13→19:36)
[2016-12-27] MEDS: Lisinopril 5 MG Tab PO SCH (09:15)
[2016-12-27] MEDS: Enoxaparin 40 MG/0.4 ML Syringe SUBCUT SCH (09:34)
[2016-12-27] MEDS: Acetaminophen/HYDROcodone 325-5 MG Tab PO PRN ×2 (14:37→19:42)
[2016-12-27] MEDS: VALPROIC ACID 250 MG/5 ML PO SCH (18:13)
[2016-12-27] MEDS: risperiDONE 1 MG Tab PO SCH (19:35)
[2016-12-27] MEDS: Mirtazapine 15 MG Tab PO SCH (19:37)
[2016-12-28] MEDS: Lisinopril 5 MG Tab PO SCH (11:12)
[2016-12-28] MEDS: Multivitamins with Iron/Calcium/Folic Acid/Minerals Tab PO SCH (11:12)
[2016-12-28] MEDS: Acetaminophen 500 MG Tab PO PRN (11:12)
[2016-12-28] MEDS: FERROUS SULFATE 15 MG PO SCH ×2 (11:12→20:43)
[2016-12-28] MEDS: Budesonide/Formoterol 80-4.5 MCG/Puff 6.9 GM Inhaler INH SCH ×2 (11:13→20:44)
[2016-12-28] MEDS: Potassium Chloride 20 MEQ Tab.ER PO SCH ×2 (19:55→20:40)
[2016-12-28] MEDS: Docusate Sodium 100 MG Cap PO SCH ×2 (19:55→20:42)
[2016-12-28] MEDS: Enoxaparin 40 MG/0.4 ML Syringe SUBCUT SCH (19:55)
[2016-12-28] MEDS: VALPROIC ACID 250 MG/5 ML PO SCH (19:57)
[2016-12-28] MEDS: risperiDONE 1 MG Tab PO SCH (20:40)
[2016-12-28] MEDS: Mirtazapine 15 MG Tab PO SCH (20:41)
[2016-12-28] MEDS: Acetaminophen/HYDROcodone 325-5 MG Tab PO PRN (20:43)
[2016-12-29] MEDS: Budesonide/Formoterol 80-4.5 MCG/Puff 6.9 GM Inhaler INH SCH ×2 (08:00→19:15)
[2016-12-29] MEDS ORDERED: Cyanocobalamin (Vitamin B12) 1,000 MCG/ML SDV IM SCH (08:00)
[2016-12-29] MEDS: FERROUS SULFATE 15 MG PO SCH ×2 (08:00→19:13)
[2016-12-29] MEDS: Docusate Sodium 100 MG Cap PO SCH (09:21)
[2016-12-29] MEDS: Potassium Chloride 20 MEQ Tab.ER PO SCH (09:22)
[2016-12-29] MEDS: Enoxaparin 40 MG/0.4 ML Syringe SUBCUT SCH (09:23)
[2016-12-29] MEDS: Lisinopril 5 MG Tab PO SCH (09:24)
[2016-12-29] MEDS: Multivitamins with Iron/Calcium/Folic Acid/Minerals Tab PO SCH (09:28)
[2016-12-29] MEDS ORDERED: Ferrous Sulfate 325 MG Tab ONE (09:35)
[2016-12-29] MEDS: Ferrous Sulfate 325 MG Tab PO SCH (09:35)
[2016-12-29] MEDS: VALPROIC ACID 250 MG/5 ML PO SCH (17:36)
[2016-12-29] MEDS: Acetaminophen/HYDROcodone 325-5 MG Tab PO PRN (19:09)
[2016-12-29] MEDS: Mirtazapine 15 MG Tab PO SCH (19:14)
[2016-12-29] MEDS: risperiDONE 1 MG Tab PO SCH (19:14)
--- NOTE | 2016-12-29 23:34 | PCM.PN ---
- General Info Date of Service: 12/29/16 Admission Dx/Problem (Free Text): Admission Diagnosis/Problem Admission Diagnosis/Problem Status post hip surgery Subjective Update: 12-29-16 LE 14:30 Pt states no pain this afternoon. Functional Status: Reports: Pain Controlled, Tolerating Diet, Other (performing exercises with PT and transferring with assist, in wheelchair) - Review of Systems Musculoskeletal: Reports: Other (leg pain improved and none at this time while sitting) Neurological: Reports: Other (little speech from pt, but reponds couple words) - Patient Data Vitals - Most Recent: Last Vital Signs Temp 97.6 F 12/29/16 08:00 Pulse 85 12/29/16 08:00 Resp 14 12/29/16 08:00 BP 109/54 L 12/29/16 09:24 Pulse Ox 94 L 12/27/16 08:00 Weight - Most Recent: 139 lb 6.4 oz Med Orders - Current: Current Medications Acetaminophen (Tylenol Extra Strength) 1,000 mg PO Q6H PRN PRN Reason: Pain Last Admin: 12/28/16 11:12 Dose: 1,000 mg Hydrocodone Bitart/Acetaminophen ([place] 325-5 Mg) 1 tab PO Q6H PRN PRN Reason: Pain Last Admin: 12/29/16 19:09 Dose: 1 tab Albuterol/Ipratropium (Duoneb 3.0-0.5 Mg/3 Ml) 3 ml INH Q4H PRN PRN Reason: Wheezing Budesonide/Formoterol Fumarate (Symbicort 80-4.5 Mcg) 6.9 gm INH BID [facility] Last Admin: 12/29/16 19:15 Dose: Not Given Cyanocobalamin (Vitamin B12) 1,000 mcg IM .MONTHLY [facility] Docusate Sodium (Colace) 200 mg PO BID [facility] Last Admin: 12/29/16 09:21 Dose: 200 mg Enoxaparin Sodium (Lovenox) 40 mg SUBCUT DAILY [facility] Stop: 01/03/17 18:00 Last Admin: 12/29/16 09:23 Dose: 40 mg Lisinopril (Prinivil) 5 mg PO DAILY [facility] Last Admin: 12/29/16 09:24 Dose: 5 mg Mirtazapine (Remeron) 7.5 mg PO BEDTIME [facility] Last Admin: 12/29/16 19:14 Dose: 7.5 mg Multivitamins/Minerals (Thera M Plus) 1 tab PO DAILY [facility] Last Admin: 12/29/16 09:28 Dose: 1 tab Non-Formulary Medication (Ferrous Sulfate [Moy-Iron Solution]) 15 mg PO BID [facility] Last Admin: 12/29/16 19:13 Dose: 15 mg Valproic Acid 250mg/ (5ml) 5 each PO DAILY@1800 [facility] Last Admin: 12/29/16 17:36 Dose: 5 each Potassium Chloride (Klor-Con M20) 20 meq PO BID [facility] Last Admin: 12/29/16 09:22 Dose: 20 meq Risperidone (Risperidal) 0.5 mg PO BEDTIME [facility] Last Admin: 12/29/16 19:14 Dose: 0.5 mg Discontinued Medications Docusate Sodium (Colace) 100 mg PO DAILY [facility] Last Admin: 12/20/16 07:29 Dose: 100 mg Ferrous Sulfate (Ferrous Sulfate) 325 mg PO BIDMEALS [facility] Last Admin: 12/29/16 09:35 Dose: 325 mg Ferrous Sulfate (Ferrous Sulfate) Confirm Administered Dose 325 mg .ROUTE .STK- MED ONE Stop: 12/29/16 09:36 Last Admin: 12/29/16 08:03 Dose: 325 mg Multivitamins/Minerals (Ocuvite) 1 each PO DAILY [facility] Last Admin: 12/26/16 07:51 Dose: 1 each Pneumococcal Polyvalent Vaccine (Pneumovax 23) 0.5 ml IM .ONCE ONE Stop: 12/26/16 10:01 Tuberculin PPD (Aplisol) 5 unit IDERM ONETIME ONE Stop: 12/19/16 11:51 Last Admin: 12/19/16 18:23 Dose: 5 unit Vit C/Vit E/Zinc/Copper/Lutein (Ocuvite Lutein) Confirm Administered Dose 1 each .ROUTE .STK-MED ONE Stop: 12/22/16 09:51 Last Admin: 12/23/16 17:37 Dose: Not Given Vit C/Vit E/Zinc/Copper/Lutein (Ocuvite Lutein) Confirm Administered Dose 1 each .ROUTE .STK-MED ONE Stop: 12/23/16 08:03 Last Admin: 12/23/16 08:04 Dose: Not Given Vit C/Vit E/Zinc/Copper/Lutein (Ocuvite Lutein) Confirm Administered Dose 1 each .ROUTE .STK-[employer] ONE Stop: 12/24/16 07:17 Last Admin: 12/25/16 23:34 Dose: Not Given - Exam General: Alert HEENT: Mucous Membr. Moist/[place] Neck: Supple Lungs: Clear to Auscultation, Normal Respiratory Effort, Decreased Breath Sounds (bases) Cardiovascular: Regular Rate, Regular Rhythm GI/Abdominal Exam: Normal Bowel Sounds, Soft, Non-Tender, No Distention Back Exam: Full Range of Motion Extremities: Normal Inspection, Normal Capillary Refill, Pedal Edema (pretibial edema to right leg and none to left leg) Skin: Warm, Dry Wound/Incisions: Dressing Dry and Intact Psy/Mental Status: Alert. No: Anxious, Agitated - Problem List & Annotations (1) Status post hip surgery SNOMED Code(s): 934602838 Code(s): Z98.890 - OTHER SPECIFIED POSTPROCEDURAL STATES Status: Acute Priority: High Current Visit: Yes Annotation/Comment:: 12-29-16 14:30 S/p hip surgery right hip, continue with PT/OT for strengthening and exercises (2) Bladder retention of urine SNOMED Code(s): 102302599 Code(s): R33.9 - RETENTION OF URINE, UNSPECIFIED Status: Acute Priority: Low Current Visit: No Annotation/Comment:: 12-29-16 resolved, pt voiding, catheter d'cd (3) Dementia SNOMED Code(s): 98303198 Code(s): F03.90 - UNSPECIFIED DEMENTIA WITHOUT BEHAVIORAL DISTURBANCE Status: Acute Priority: High Current Visit: No Qualifiers: Alzheimer's disease onset: unspecified onset Dementia behavioral disturbance: with behavioral disturbance Annotation/Comment:: 12-29-16 14:30 Pt is alert, little words per pt, nods head in agreement. Attempts to get up without assist and occasionally inappropriate behavior. Bed alarm on bed or on chair to prevent falls. Pt in chair with close observation/supervision. (4) Anemia SNOMED Code(s): 591358381 Code(s): D64.9 - ANEMIA, UNSPECIFIED Status: Acute Priority: High Current Visit: Yes Onset Date: ~12/19/16 Annotation/Comment:: 12-29-16 14: 30 Continue with ferrous sulfate. Will recheck Hgb/hct 01-01-17 - Problem List Review Problem List Initiated/Reviewed/Updated: Yes - My Orders Last 24 Hours: My Active Orders 12/29/16 08:00 Cyanocobalamin (Vitamin B12) [Vitamin B12] 1,000 mcg IM .MONTHLY - Assessment Assessment:: 12-29-16 14:30 S/P right hip surgery, post fracture. Dementia: Anemia: - Plan Plan:: LE 12-29-16 14:30 S/P right hip surgery: PT/OT for evaluation and treatment: Stregthening and exercise. Offer strengthening and exercise as able with pt with dementia. Pt resistive at times and may be combative at times. Anticoagulant, prevention PE post surgery: Lovenox per protocol from surgeon. SCD's per protocol. Wound right hip: Dressing change per protocol from surgeon. Keep dressing clean, dry and intact. Assess wound for signs of infection. Pain to right hip: Pain medication for mild, moderate, and severe pain. Position patient for comfort. Assist patient with transfers. Dementia: Safety precautions to prevent falls. Medications as ordered. Anemia: Vitamin B12, and ferrous sulfate as ordered. Encourage pt with meals and offer assist as needed. Monitor lab values weekly and prn. Urinary retention/resolved Discharge plan: SW to assist with discharge plan/placement. Plan to discharge to technician terminal and repeater care facility.
[2016-12-30] MEDS: Lisinopril 5 MG Tab PO SCH (08:26)
[2016-12-30] MEDS: Multivitamins with Iron/Calcium/Folic Acid/Minerals Tab PO SCH (08:26)
[2016-12-30] MEDS: Docusate Sodium 100 MG Cap PO SCH ×3 (08:26→23:13)
[2016-12-30] MEDS: Enoxaparin 40 MG/0.4 ML Syringe SUBCUT SCH (08:27)
[2016-12-30] MEDS: Potassium Chloride 20 MEQ Tab.ER PO SCH ×3 (08:27→23:13)
[2016-12-30] MEDS: FERROUS SULFATE 15 MG PO SCH ×2 (08:28→23:13)
[2016-12-30] MEDS: Budesonide/Formoterol 80-4.5 MCG/Puff 6.9 GM Inhaler INH SCH ×3 (08:28→23:13)
[2016-12-30] MEDS: VALPROIC ACID 250 MG/5 ML PO SCH (23:12)
[2016-12-30] MEDS: Mirtazapine 15 MG Tab PO SCH ×2 (23:13→23:52)
[2016-12-30] MEDS: risperiDONE 1 MG Tab PO SCH ×2 (23:13→23:52)
[2016-12-30] MEDS: Acetaminophen/HYDROcodone 325-5 MG Tab PO PRN (23:51)
[2016-12-31] MEDS: Docusate Sodium 100 MG Cap PO SCH ×2 (08:17→19:42)
[2016-12-31] MEDS: Potassium Chloride 20 MEQ Tab.ER PO SCH ×2 (08:17→19:39)
[2016-12-31] MEDS: FERROUS SULFATE 15 MG PO SCH ×2 (08:17→23:12)
[2016-12-31] MEDS: Multivitamins with Iron/Calcium/Folic Acid/Minerals Tab PO SCH (08:17)
[2016-12-31] MEDS: Lisinopril 5 MG Tab PO SCH (08:17)
[2016-12-31] MEDS: Budesonide/Formoterol 80-4.5 MCG/Puff 6.9 GM Inhaler INH SCH ×2 (08:21→23:13)
[2016-12-31] MEDS: Enoxaparin 40 MG/0.4 ML Syringe SUBCUT SCH (09:09)
[2016-12-31] MEDS: VALPROIC ACID 250 MG/5 ML PO SCH ×2 (16:51→19:06)
[2016-12-31] MEDS: Acetaminophen/HYDROcodone 325-5 MG Tab PO PRN (19:38)
[2016-12-31] MEDS: Mirtazapine 15 MG Tab PO SCH (19:39)
[2016-12-31] MEDS: risperiDONE 1 MG Tab PO SCH (19:41)
[2017-01-01] MEDS: Lisinopril 5 MG Tab PO SCH (11:49)
[2017-01-01] MEDS: Multivitamins with Iron/Calcium/Folic Acid/Minerals Tab PO SCH (11:50)
[2017-01-01] MEDS: Enoxaparin 40 MG/0.4 ML Syringe SUBCUT SCH (11:50)
[2017-01-01] MEDS: Budesonide/Formoterol 80-4.5 MCG/Puff 6.9 GM Inhaler INH SCH ×2 (11:50→19:33)
[2017-01-01] MEDS: Docusate Sodium 100 MG Cap PO SCH ×2 (11:50→19:31)
[2017-01-01] MEDS: FERROUS SULFATE 15 MG PO SCH ×2 (11:50→19:33)
[2017-01-01] MEDS: Potassium Chloride 20 MEQ Tab.ER PO SCH ×2 (11:50→19:30)
[2017-01-01] MEDS: VALPROIC ACID 250 MG/5 ML PO SCH (17:21)
[2017-01-01] MEDS: Mirtazapine 15 MG Tab PO SCH (19:30)
[2017-01-01] MEDS: risperiDONE 1 MG Tab PO SCH (19:31)
[2017-01-01] MEDS: Acetaminophen/HYDROcodone 325-5 MG Tab PO PRN (19:31)
[2017-01-02] MEDS ORDERED: Cyanocobalamin (Vitamin B12) 1,000 MCG/ML SDV IM ONE (08:00)
[2017-01-02] MEDS: Docusate Sodium 100 MG Cap PO SCH (08:10)
[2017-01-02] MEDS: Lisinopril 5 MG Tab PO SCH (08:11)
[2017-01-02 08:28] VITALS: BP 103/71
[2017-01-02] MEDS: Potassium Chloride 20 MEQ Tab.ER PO SCH (08:28)
[2017-01-02] MEDS: Multivitamins with Iron/Calcium/Folic Acid/Minerals Tab PO SCH (08:28)
[2017-01-02] MEDS: Budesonide/Formoterol 80-4.5 MCG/Puff 6.9 GM Inhaler INH SCH (08:30)
--- NOTE | 2017-01-02 08:33 | PCM.DCSUM1 ---
Discharge Summary - Discharge Data Discharge Date: 01/02/17 Discharge Disposition: [facility] Condition: Good - Discharge Diagnosis/Problem(s) (1) Status post hip surgery SNOMED Code(s): 860533975 ICD Code: Z98.890 - OTHER SPECIFIED POSTPROCEDURAL STATES Status: Acute Priority: High Problem Details: 01-02-17 8:30 S/p hip surgery right hip, Goran removed yesterday, continue with daily wound observation. Lovenox today and tomorrow, then d/c. Continue with pain medicine as ordered. BMP in 2 weeks. (2) Bladder retention of urine SNOMED Code(s): 992360883 ICD Code: R33.9 - RETENTION OF URINE, UNSPECIFIED Status: Acute Priority : Low Problem Details: 01-02-17 resolved, pt voiding, catheter d'cd. Assess post void residual prn if increase frequency of urination or unable to void. (3) Dementia SNOMED Code(s): 59881368 ICD Code: F03.90 - UNSPECIFIED DEMENTIA WITHOUT BEHAVIORAL DISTURBANCE Status: Acute Priority: High Problem Details: 01-02-17 14:30 Pt is alert, little words per pt, nods head in agreement. Attempts to get up without assist and occasionally inappropriate behavior. Bed alarm on bed or on chair to prevent falls. Pt in chair with close observation/supervision. Continue close observation/supervision and use of chair/bed alarm as needed to prevent falls. Qualifiers: Alzheimer's disease onset: unspecified onset Dementia behavioral disturbance: with behavioral disturbance (4) Anemia SNOMED Code(s): 957160700 ICD Code: D64.9 - ANEMIA, UNSPECIFIED Status: Acute Priority: High Onset Date: ~12/19/16 Problem Details: 01-02-17 14:30 Continue with ferrous sulfate. Hgb improved 9.9. Recheck CBC in 2 weeks - Patient Summary/Data Consults: Consultations 12/19/16 11:50 OT Evaluation and Treatment [CONS] Routine Please Evaluate and Treat. OT Reason for Consult: Strengthening This query below is only for informational purposes and is not editable. Admission Diagnosis/Problem: Status post hip surgery PT Evaluation and Treatment [CONS] Routine Please Evaluate and Treat. PT Reason for Consult: Strengthening This query below is only for informational purposes and is not editable. Admission Diagnosis/Problem: Status post hip surgery - Patient Instructions Diet: Regular Diet as Tolerated Activity: As Tolerated, Full Weight Bearing Activity, Other: up with assist Showering/Bathing: May Shower Wound/Incision Care: Keep Operative Site/Wound Site Clean and Dry Notify Provider of: Fever, Increased Pain, Swelling and Redness, Drainage - Discharge Plan Home Medications: Home Meds Acetaminophen [Acetaminophen Extra Strength] 1,000 mg PO Q6H PRN 12/19/16 [ History] Acetaminophen/HYDROcodone [[place] 325-5 MG] 1 tab PO Q6H PRN 12/19/16 [History] Albuterol/Ipratropium [DuoNeb 3.0-0.5 MG/3 ML] 3 ml INH Q4H PRN 12/19/16 [ History] Cyanocobalamin (Vitamin B-12) [Vitamin B-12] 1,000 mcg SL ASDIRECTED 12/19/16 [ History] Docusate Sodium [Docu 50 MG/5 ML Liquid] 10 ml PO DAILY 12/19/16 [History] Enoxaparin [Lovenox] 40 mg SUBCUT DAILY 12/19/16 [History] Ferrous Sulfate [Moy-Iron Solution] 15 mg PO BID 12/19/16 [History] Lisinopril [Prinivil] 5 mg PO DAILY 12/19/16 [History] Lutein/Min/Vit C/Vit E Acetate [Ocuvite Lutein] 1 each PO BID 12/19/16 [History] Valproic Acid (As Sodium Salt) [Depakene] 250 mg PO BEDTIME 12/19/16 [History] Budesonide/Formoterol [Symbicort 80-4.5 MCG] 6.9 gm INH BID inhaler 01/02/17 [ Rx] Mirtazapine [Remeron] 7.5 mg PO BEDTIME #0 tablet 01/02/17 [Rx] Potassium Chloride [Klor-Con M20] 20 meq PO BID tab.er 01/02/17 [Rx] risperiDONE [RisperiDAL] 0.5 mg PO BEDTIME tablet 01/02/17 [Rx] - Discharge Summary/Plan Comment Discharge Summary/Plan Comment: 01-02-17 0830 AM S/P right hip fracture with surgery. Patterson removed 01-01-17 per [place] staff. No drainage from site and no erythema. Edges approximated well. Incision is open to air. A/P: S/P right hip surgery, anemia and wound care: Continue to promote transfers with assist, standing and ambulating short distance, and up in chair. Pt at risk for falls, fall precautions needed. Assess wound daily and apply dry, clean dressing for comfort, as needed. Medication for mild, moderate, or severe pain, as needed every 4-6 hour. Continue with Lovenox, last dose 01-03-17. Recheck CBC and BMP in 2 weeks. Anemia noted during Swing bed stay. Continue with potassium bid PO. May need to decrease dose, pending results from 2 weeks. Dementia: Pt continues with dementia as before surgery. Continue with medication as ordered. Encourage verbal response and conversation with pt. Orders reviewed with MICHAEL Spaulding for discharge to [facility] today. - General Info Date of Service: 01/02/17 Admission Dx/Problem (Free Text: Admission Diagnosis/Problem Admission Diagnosis/Problem Status post hip surgery Subjective Update: 01-02-17 08:30 AM Pt states no pain during visit this am. Refuses breakfast at this time. Functional Status: Reports: Pain Controlled - Review of Systems Gastrointestinal: Reports: Other (states not hungry at this time). Denies: Abdominal Pain Musculoskeletal: Reports: Leg Pain (controlled with medication) Psychiatric: Reports: Other (Minimal verbal response today. Has eyes closed and nods periodically.) - Patient Data Vitals - Most Recent: Last Vital Signs Temp 97.6 F 01/01/17 08:00 Pulse 79 01/01/17 08:00 Resp 16 01/01/17 08:00 BP 135/74 01/01/17 11:49 Pulse Ox 94 L 01/01/17 08:00 Weight - Most Recent: 131 lb I&O - Last 24 hours: Intake & Output 01/01/17 01/02/17 01/02/17 22:59 06:59 14:59 Intake Total 240 Balance 240 Med Orders - Current: Current Medications Acetaminophen (Tylenol Extra Strength) 1,000 mg PO Q6H PRN PRN Reason: Pain Last Admin: 12/28/16 11:12 Dose: 1,000 mg Hydrocodone Bitart/Acetaminophen ([place] 325-5 Mg) 1 tab PO Q6H PRN PRN Reason: Pain Last Admin: 01/01/17 19:31 Dose: 1 tab Albuterol/Ipratropium (Duoneb 3.0-0.5 Mg/3 Ml) 3 ml INH Q4H PRN PRN Reason: Wheezing Budesonide/Formoterol Fumarate (Symbicort 80-4.5 Mcg) 6.9 gm INH BID [facility] Last Admin: 01/01/17 19:33 Dose: Not Given Docusate Sodium (Colace) 200 mg PO BID [facility] Last Admin: 01/01/17 19:31 Dose: 200 mg Enoxaparin Sodium (Lovenox) 40 mg SUBCUT DAILY [facility] Stop: 01/03/17 18:00 Last Admin: 01/01/17 11:50 Dose: Not Given Lisinopril (Prinivil) 5 mg PO DAILY [facility] Last Admin: 01/01/17 11:49 Dose: 5 mg Mirtazapine (Remeron) 7.5 mg PO BEDTIME [facility] Last Admin: 01/01/17 19:30 Dose: 7.5 mg Multivitamins/Minerals (Thera M Plus) 1 tab PO DAILY [facility] Last Admin: 01/01/17 11:50 Dose: Not Given Non-Formulary Medication (Ferrous Sulfate [Moy-Iron Solution]) 15 mg PO BID [facility] Last Admin: 01/01/17 19:33 Dose: 15 mg Valproic Acid 250mg/ (5ml) 5 each PO DAILY@1800 [facility] Last Admin: 01/01/17 17:21 Dose: 5 each Pneumococcal Polyvalent Vaccine (Pneumovax 23) 0.5 ml IM .ONCE ONE Stop: 01/02/17 11:01 Potassium Chloride (Klor-Con M20) 20 meq PO BID [facility] Last Admin: 01/01/17 19:30 Dose: 20 meq Risperidone (Risperidal) 0.5 mg PO BEDTIME [facility] Last Admin: 01/01/17 19:31 Dose: 0.5 mg Discontinued Medications Cyanocobalamin (Vitamin B12) 1,000 mcg IM .MONTHLY [facility] Cyanocobalamin (Vitamin B12) 1,000 mcg IM ONETIME ONE Stop: 01/02/17 08:01 Docusate Sodium (Colace) 100 mg PO DAILY [facility] Last Admin: 12/20/16 07:29 Dose: 100 mg Ferrous Sulfate (Ferrous Sulfate) 325 mg PO BIDMEALS [facility] Last Admin: 12/29/16 09:35 Dose: 325 mg Ferrous Sulfate (Ferrous Sulfate) Confirm Administered Dose 325 mg .ROUTE .STK- MED ONE Stop: 12/29/16 09:36 Last Admin: 12/29/16 08:03 Dose: 325 mg Multivitamins/Minerals (Ocuvite) 1 each PO DAILY ANDREW Last Admin: 12/26/16 07:51 Dose: 1 each Pneumococcal Polyvalent Vaccine (Pneumovax 23) 0.5 ml IM .ONCE ONE Stop: 12/31/16 00:14 Tuberculin PPD (Aplisol) 5 unit IDERM ONETIME ONE Stop: 12/19/16 11:51 Last Admin: 12/19/16 18:23 Dose: 5 unit Vit C/Vit E/Zinc/Copper/Lutein (Ocuvite Lutein) Confirm Administered Dose 1 each .ROUTE .[facility]-MED ONE Stop: 12/22/16 09:51 Last Admin: 12/23/16 17:37 Dose: Not Given Vit C/Vit E/Zinc/Copper/Lutein (Ocuvite Lutein) Confirm Administered Dose 1 each .ROUTE .[facility]-MED ONE Stop: 12/23/16 08:03 Last Admin: 12/23/16 08:04 Dose: Not Given Vit C/Vit E/Zinc/Copper/Lutein (Ocuvite Lutein) Confirm Administered Dose 1 each .ROUTE .[facility] ONE Stop: 12/24/16 07:17 Last Admin: 12/25/16 23:34 Dose: Not Given - Exam General: Reports: Alert, No Acute Distress HEENT: Reports: Mucous Membr. Moist/[place] Neck: Reports: Supple, Trachea Midline Lungs: Reports: Clear to Auscultation, Normal Respiratory Effort Cardiovascular: Reports: Regular Rate, Regular Rhythm GI/Abdominal Exam: Normal Bowel Sounds, Soft, Non-Tender Back Exam: Reports: Normal Inspection, Full Range of Motion Extremities: Normal Inspection, Non-Tender, Normal Capillary Refill, Pedal Edema (more pronounced to right foot), Leg Pain (Pain controlled with medications), Limited Range of Motion Skin: Reports: Warm, Dry Wound/Incisions: Reports: Healing Well, No Drainage. Denies: Erythema Neurological: Reports: No New Focal Deficit Psy/Mental Status: Reports: Alert, Other (quiet with little response) *Q Meaningful Use (DIS) - VTE *Q VTE Criteria *Q: - Stroke *Q Stroke Criteria *Q: - AMI *Q AMI Criteria *Q:
[2017-01-02] MEDS: FERROUS SULFATE 15 MG PO SCH (08:41)
[2017-01-02] MEDS: Enoxaparin 40 MG/0.4 ML Syringe SUBCUT SCH (10:00)
[2017-01-02] MEDS ORDERED: Pneumococcal Polyvalent-23 Vaccine 0.5 ML SDV IM ONE (11:00)
== END 2017-01-02 10:30 | DRG 948 ==
LOC: LB.MS 10:45 → UNDOADMIN 10:45 → LB.MS 12:30
PROVIDERS: ADMIT Nurse Practitioner Family; ATTEND Nurse Practitioner Family
DX: R53.1 Weakness (principal); F02.81 Dementia in other diseases classified elsewhere, unspecified severity, with behavioral disturbance; Z98.890 Other specified postprocedural states; Z66 Do not resuscitate; Z23 Encounter for immunization; I10 Essential (primary) hypertension; I25.10 Atherosclerotic heart disease of native coronary artery without angina pectoris; Z95.1 Presence of aortocoronary bypass graft; J44.9 Chronic obstructive pulmonary disease, unspecified; M19.90 Unspecified osteoarthritis, unspecified site; G30.9 Alzheimer's disease, unspecified; R33.9 Retention of urine, unspecified; D64.9 Anemia, unspecified; Z87.440 Personal history of urinary (tract) infections; H35.30 Unspecified macular degeneration; Z79.01 Long term (current) use of anticoagulants; Z88.6 Allergy status to analgesic agent; Z88.0 Allergy status to penicillin; Z88.8 Allergy status to other drugs, medicaments and biological substances
CPT/HCPCS: 36415; 51702; 51798; 80048; 81003; 83036; 85025; 86580; 90732; 97110-GO; 97110-GP; 97140-GO; 97140-GP; 97162-GP; 97165-GO; 97530-GO; 97530-GP; 97535-GO; 97542-GO; A9270-GY; J1650; J3420